=== PATIENT | male | born 1960 | race Caucasian/White ===

== ENCOUNTER 2017-06-11 10:01 | Emergency (ER) | payer OTHER ==
[2017-06-11 11:13] VITALS: BP 138/86
--- NOTE | 2017-06-11 11:38 | Emergency Department Report ---
ED Lower Extremity HPI - General Chief Complaint: Extremity Injury, Lower Stated Complaint: LEFT FOOT INJURY Time Seen by Provider: 06/11/17 11:36 Source: patient, family Mode of arrival: Ambulatory Limitations: No Limitations - History of Present Illness Initial Comments: This is a 57-year-old male he said he was walking in for physical therapy with [facility] [employer] yesterday and he stepped on a rock in the roadway and he rolled his left ankle and foot and is now complaining left ankle and foot pain. He said when he be a weight on his left foot it hurts. Denies any swelling. Denies any radiation of pain of his left leg. He said he does not have pain with rest but pain is 6 of the 10 walk-in. MD Complaint: ankle injury, foot injury Onset/Timin -: days(s) Injury: Ankle: Left (Pain), Foot: Left (pain) Type of Injury: unknown (twisted lt ankle and foot while walking) Place: work Severity: moderate Severity scale (0 -10): 6 (only with bearing weight) Improves With: nothing Worsens With: weight bearing Context: walking Associated Symptoms: ambulatory. denies: snap/pop sensation, swelling, numbness , tingling Treatments Prior to Arrival: other (none) - Related Data Previous Rx's Medication Instructions Recorded Last Taken Type Ibuprofen [Motrin] 600 mg PO Q8H PRN #15 tablet 06/11/17 Unknown Rx Allergies Allergy/AdvReac Type Severity Reaction Status Date / Time No Known Allergies Allergy Unverified 06/11/17 11:07 ED Review of Systems ROS: Stated complaint: LEFT FOOT INJURY Other details as noted in HPI Comment: All other systems reviewed and negative Constitutional: no symptoms reported Respiratory: no symptoms reported Cardiovascular: denies: chest pain, palpitations, edema, syncope Gastrointestinal: denies: abdominal pain, nausea, vomiting Musculoskeletal: arthralgia. denies: back pain, joint swelling, myalgia Skin: denies: rash Neurological: denies: headache, weakness, numbness, paresthesias, confusion, abnormal gait, vertigo ED Past Medical Hx - Past Medical History Previous Medical History?: Yes Hx Hypertension: Yes Additional medical history: Elevated cholesterol - Surgical History Past Surgical History?: No - Family History Family history: hypertension - Social History Smoking Status: Never Smoker Substance Use Type: Alcohol - Medications Home Medications: Home Medications Medication Instructions Recorded Confirmed Last Taken Type Ibuprofen [Motrin] 600 mg PO Q8H PRN #15 tablet 06/11/17 Unknown Rx ED Physical Exam - General Limitations: No Limitations General appearance: alert, in no apparent distress - Head Head exam: Present: atraumatic, normocephalic, normal inspection - Eye Eye exam: Present: normal appearance, PERRL, EOMI Pupils: Present: normal accommodation - ENT ENT exam: Present: normal exam, normal orophraynx, mucous membranes moist - Neck Neck exam: Present: normal inspection, full ROM. Absent: tenderness, meningismus, lymphadenopathy - Respiratory Respiratory exam: Present: normal lung sounds bilaterally. Absent: respiratory distress, wheezes, chest wall tenderness, accessory muscle use - Cardiovascular Cardiovascular Exam: Present: regular rate, normal rhythm, normal heart sounds. Absent: systolic murmur, diastolic murmur - GI/Abdominal GI/Abdominal exam: Present: soft, normal bowel sounds. Absent: distended, tenderness, guarding, rebound, rigid, organomegaly, mass, bruit, pulsatile mass , hernia - Extremities Exam Extremities exam: Present: normal inspection, full ROM, normal capillary refill , other (S2 pulses lower extremities, no clubbing cyanosis or edema. No neurovascular compromise). Absent: tenderness, pedal edema, joint swelling, calf tenderness - Expanded Lower Extremity Exam Left Hip exam: Present: normal inspection, full ROM, pelvic stability. Absent: tenderness, swelling, abrasion, laceration, ecchymosis, deformity, crepidus, dislocation, erythema, external rotation, internal rotation, shortening Upper Leg exam: Present: normal inspection, full ROM. Absent: tenderness, swelling, abrasion, laceration, ecchymosis, deformity, crepidus, dislocation, erythema Knee exam: Present: normal inspection, full ROM, full knee extension. Absent: tenderness, swelling, abrasion, laceration, ecchymosis, deformity, crepidus, dislocation, erythema, effusion, pain w/ pronation/supination, posterior draw sign, pain/laxity with valgus, pain/laxity with varus Lower Leg exam: Present: normal inspection, full ROM. Absent: tenderness, swelling, abrasion, laceration, ecchymosis, deformity, crepidus, dislocation, erythema, palpable cord, Benigno's sign Ankle exam: Present: normal inspection, full ROM. Absent: tenderness, swelling , abrasion, laceration, ecchymosis, deformity, crepidus, dislocation, erythema Foot/Toe exam: Present: normal inspection, full ROM. Absent: tenderness, swelling, abrasion, laceration, ecchymosis, deformity, crepidus, dislocation, erythema, amputation, puncture wound, foreign body, calcaneal tenderness, tenderness at base of 5th metatarsal, nail avulsion, subungual hematoma Neuro vascular tendon exam: Present: no vascular compromise. Absent: pulse deficit, abnormal cap refill, motor deficit, tendon deficit, extremity cold to touch, pallor, abnormal 2-point discrimination, decreased fine/light touch, foot drop, peroneal nerve deficit, significant pain with passive ROM of distal joint Gait: Positive: observed and limited by pain - Neurological Exam Neurological exam: Present: alert, oriented X3, normal gait, reflexes normal. Absent: motor sensory deficit - Psychiatric Psychiatric exam: Present: normal affect, normal mood - Skin Skin exam: Present: warm, dry, intact, normal color. Absent: rash ED Course Vital Signs 06/11/17 11:07 Temperature 98.4 F Pulse Rate 82 Respiratory 16 Rate Blood Pressure 138/86 O2 Sat by Pulse 99 Oximetry - Reevaluation(s) Reevaluation #1: 06/11/17 12:00 Patient had uneventful stay ED Lower Extremity MDM - Radiology Data Radiology results: report reviewed X-ray report of left foot and ankle reveal no acute fracture or dislocation. No foreign body or soft tissue swelling. - Medical Decision Making ED course: Status post left foot and ankle injury while at work during PT. Patient will minimal pain to walk-in and physical findings reveal no swelling, deformity or erythema to left foot and ankle. X-ray of right foot and ankle reveal no acute findings. Discussed with patient that his x-rays were negative for any fracture dislocation and that he'll need to rest, ice, compress and elevate affected area for the next 72 hours and follow-up with orthopedic doctor in 3-5 days if he still continues to have pain. Patient discharged home with prescription for Motrin. Critical care attestation.: If time is entered above; I have spent that time in minutes in the direct care of this critically ill patient, excluding procedure time. ED Disposition Clinical Impression: Arthralgia of multiple sites Injury of left ankle and foot Qualifiers: Encounter type: initial encounter Qualified Code(s): S99.912A - Unspecified injury of left ankle, initial encounter; S99.922A - Unspecified injury of left foot, initial encounter; S99.922A - Unspecified injury of left foot, initial encounter Disposition: TO HOME OR SELFCARE Is pt being admited?: No Does the pt Need Aspirin: No Condition: Stable Instructions: Ankle Exercises (GEN), Arthralgia (ED), RICE Therapy (ED) Additional Instructions: Please follow up with orthopedic doctor in 3-5 days Please rest, ice, compress and elevate affected area for 72 hours Take Motrin as prescribed for pain Prescriptions: Ibuprofen [Motrin] 600 mg PO Q8H PRN #15 tablet PRN Reason: Pain Referrals: JESSICA JONES MD [Staff Physician] - 3-5 Days Forms: Work/School Release Form(ED)
--- NOTE | 2017-06-11 11:42 | XRay Report ---
LEFT FOOT, 2 views: History: Pain upon ambulation The bony architecture is intact. Bony alignment is normal. No soft tissue abnormalities are seen. The joint spaces appear preserved. IMPRESSION: Left foot within normal limits.
--- NOTE | 2017-06-11 11:43 | XRay Report ---
LEFT ANKLE, 2 views: History: Pain upon ambulation. Bone mineralization is normal. No acute osseous abnormality or joint pathology is identified. The soft tissues are unremarkable. IMPRESSION: Left ankle within normal limits.
== END 2017-06-11 12:00 | disposition home or self-care (01) ==
LOC: ED 10:01
DX: S99.912A Unspecified injury of left ankle, initial encounter (principal); M25.50 Pain in unspecified joint; I10 Essential (primary) hypertension; X58.XXXA Exposure to other specified factors, initial encounter; Y93.9 Activity, unspecified; Y99.9 Unspecified external cause status; Y92.89 Other specified places as the place of occurrence of the external cause
CPT/HCPCS: 99283